=== PATIENT | female | born 1980 | race Caucasian/White ===

== ENCOUNTER 2017-06-29 21:12 | Emergency (ER) | payer BC ==
[~2017-06-29] VITALS: Ht 154.9 cm; Wt 79.0 kg
[2017-06-30 00:07] LABS: HEMATOCRIT 39.1 % (36.0-46.0); HEMOGLOBIN 13.5 G/DL (11.9-15.5); MCH 30.8 PG (29.0-34.0); MCHC 34.5 G/DL (30.0-36.0); MCV 89.3 FL (83-99); PLATELET COUNT 248 K/uL (156-360); RED BLOOD COUNT 4.38 M/uL (3.80-5.20); WHITE BLOOD COUNT 13.4 K/uL (4.1-10.2)
[2017-06-30 00:18] LABS: CHLORIDE 106 mEq/L (99-109); POTASSIUM 3.7 mEq/L (3.7-5.4); SODIUM 139 mEq/L (136-147)
[2017-06-30 00:20] LABS: GLUCOSE 88 mg/dL (70-99)
[2017-06-30 00:23] LABS: CREATININE 0.7 mg/dL (0.6-1.3); GFR ESTIMATE (CALCULATED) > 59 mL/min/
[2017-06-30 00:24] LABS: UREA NITROGEN (BUN) 6 mg/dL (9-23)
[2017-06-30 00:53] LABS: QUANTITATIVE HCG 24330.8 MIU/ML
[2017-06-30 02:49] VITALS: BP 121/71
== END 2017-06-30 02:52 | disposition home or self-care (01) ==
LOC: EME 21:12
PROVIDERS: Emergency Medicine
DX: O03.4 Incomplete spontaneous abortion without complication (principal); F17.200 Nicotine dependence, unspecified, uncomplicated
CPT/HCPCS: 76801; 80048; 84702; 85027; 86900; 86901; 99281; 99283